=== PATIENT | female | born 1980 ===

== ENCOUNTER 2023-02-07 21:17 | Outpatient (REF) | payer BC, SELFPAY ==
[2023-02-08 09:26] LABS: HIV-1/2 Ag & Ab Screen Negative (Negative)
[2023-02-08 14:10] LABS: Chlamydia Result Negative (Negative); GC Result Negative (Negative)
[2023-02-10 10:12] LABS: Syphilis Serology (RPR) Negative (Negative)
[2023-02-10 10:17] LABS: HSV Type 1 Ab, IgG Negative (Negative); HSV Type 2 Ab, IgG Negative (Negative)
== END 2023-02-07 21:18 | disposition home or self-care (01) ==
LOC: LBN 21:17
PROVIDERS: Visit Provider Nurse Practitioner Family
DX: Z20.2 Contact with and (suspected) exposure to infections with a predominantly sexual mode of transmission (principal); Z11.3 Encounter for screening for infections with a predominantly sexual mode of transmission; Z11.4 Encounter for screening for human immunodeficiency virus [HIV]; Z11.59 Encounter for screening for other viral diseases
CPT/HCPCS: 87389; 87491; 87591; 86592; 86695; 86696; 87070; 87205

== ENCOUNTER 2024-03-23 14:03 | Outpatient (REF) | payer BC, SELFPAY ==
--- NOTE | 2024-03-23 12:50 | PAPFT_PTH ---
PATIENT: Ana Vila LOC: [facility] U#:[id number] AGE/SX: 43/F ROOM: RE03/23/[address]: Ana Santana : 1980 BED: DIS: 03/23/2024 SPEC #: [id number] RECD: 03/23/24 18:32 STATUS: CECILIA REQ #: [id number] MARIANA: 03/23/24 12:[address]: Ana aSntana DEPT: [facility] Cytology RECD BY: Angie Vu Tissues: 1 - CX/ENDOCX FOR PAP SMEARS Procedures: PAP THIN PREP/[facility] Screening HPV DNA PROBE Comments: [id number] (HPV 16 & 18/45)
== END 2024-03-23 14:04 | disposition home or self-care (01) ==
LOC: NCHCN 14:03
PROVIDERS: PCP Nurse Practitioner Family; Visit Provider Nurse Practitioner Family
DX: Z11.51 Encounter for screening for human papillomavirus (HPV) (principal); Z01.419 Encounter for gynecological examination (general) (routine) without abnormal findings
CPT/HCPCS: 88142; 87624